=== PATIENT | female | born 1960 | race Caucasian/White ===

== ENCOUNTER → 2019-08-25 | Day surgery (SDC) | payer BC ==
[~2019-08-25] MED LIST: BIOTIN300 MCG PO; FENTANYL CITRATE/PF 100MCG/2 ML INJ ONE; GLUCAGON FOR INJ 1 MG VIAL ONE; HYOSCYAMINE 0.125 MG TAB ONE; MIDAZOLAM HCL 2 MG/2 ML VIAL ONE; MULTI-VITAMIN1 EACH PO; PROPOFOL IV EMULSION 10 MG/ML 50 ML VIAL ONE
--- NOTE | 2019-08-25 07:15 | NUR ---
SPIRITUAL CARE - Pre-Surgery Assessment: Pt in bed. Pt's friend at bedside. Pt reported supportive attention from family and friends. Intervention: I provided pastoral presence, hospitality, and sympathetic listening. I acquainted pt with availability of gauge and weigh machine adjuster while hospitalized. Outcome: Pt expressed appreciation for visit. No need for follow up indicated at this time. SEKOU Spearslain Spiritual Care Department O: [phone] Pager: [phone] ([phone] number calling from)
[2019-08-25 09:15] VITALS: BP 121/73
--- NOTE | 2019-08-25 13:56 | Operative Report ---
DATE OF PROCEDURE: 08/25/2019 SURGEON: Sg James MD PROCEDURE: Colonoscopy with polypectomy and hemoclipping of polypectomy site. INDICATIONS FOR COLONOSCOPY: Colorectal cancer screening, mother with colon cancer. MEDICATIONS: The patient was done under MAC, please see anesthesiologist's note. PROCEDURE IN DETAIL: With the patient in the left lateral decubitus position, a flexible fiberoptic Olympus colonoscope was inserted into the rectum with ease and advanced all the way to the cecum. An approximately 8 mm sessile polyp was noted in the cecum and that was removed per snare electrocautery and site was hemoclipped x1. An extrinsic compression was noted against the lateral wall of the cecum. The ascending, transverse, descending, and sigmoid grossly were unremarkable. Three minute polyps, hyperplastic-appearing, were hot biopsied from the rectum. The scope could not retroflex into the distal rectum, as her rectum was rather small. The scope was then straightened out and on the way out, whatever was visualized of the area around the dentate line grossly appeared to be within normal limits. The scope was subsequently withdrawn and the patient tolerated the procedure well. IMPRESSION: 1. Cecal polyp, approximately 8 mm sessile, removed per snare electrocautery and polypectomy site hemoclipped x1. 2. Extrinsic compression, cecum. 3. Rectal polyps x3, hot biopsied. Could not retroflex scope in distal rectum, as the patient's rectum was rather small, but whatever was visualized of the area around the dentate line appeared to be grossly within normal limits. PLAN: Follow up histology. Initiate high-fiber, low-fat diet. Initiate high-fiber supplement. The patient will need a CT scan of the abdomen to delineate the nature of the extrinsic compression against the cecum. The patient might benefit from a followup colonoscopy in 3 years. Sg James MD [facility] [place] /[id number] cc: Chela Collins MD
== END | disposition home or self-care (01) ==
LOC: OR 05:39
PROVIDERS: ATTEND Internal Medicine Gastroenterology
DX: Z12.11 Encounter for screening for malignant neoplasm of colon (principal); D12.0 Benign neoplasm of cecum; K62.1 Rectal polyp; K63.89 Other specified diseases of intestine; K44.9 Diaphragmatic hernia without obstruction or gangrene; R03.0 Elevated blood-pressure reading, without diagnosis of hypertension; Z01.810 Encounter for preprocedural cardiovascular examination; Z80.0 Family history of malignant neoplasm of digestive organs
CPT/HCPCS: 45384; 45385; 93005; J1610; J2250; J2704; J3010; 45378

== ENCOUNTER → 2019-09-01 | Outpatient (CLI) | payer BC ==
[~2019-09-01] MED LIST changes: +DIATRIZOATE MEGL/DIATRIZOA SOD 30 ML BTL PO ONE; -FENTANYL CITRATE/PF 100MCG/2 ML INJ ONE; -GLUCAGON FOR INJ 1 MG VIAL ONE; -HYOSCYAMINE 0.125 MG TAB ONE; +IOPAMIDOL 370 MG/ML 200 ML INFUS..BTL INJ ONE; -MIDAZOLAM HCL 2 MG/2 ML VIAL ONE; -PROPOFOL IV EMULSION 10 MG/ML 50 ML VIAL ONE; +SODIUM CHLORIDE 0.9% 500ML 500 ML ONE; +SODIUM CHLORIDE 0.9% 50ML 50 ML ONE
[2019-09-01 09:33] LABS: CREATININE, SERUM 1.04 mg/dL (0.57-1.11)
--- NOTE | 2019-09-01 13:20 | Diagnostic Imaging Report ---
EXAM: CT Abdomen and Pelvis WITH intravenous contrast INDICATION: Abnormal colonoscopy. Extrinsic compression. COMPARISON: None. TECHNIQUE: Abdomen and pelvis were scanned utilizing a multidetector helical scanner from the lung base to the pubic symphysis after administration of IV contrast. Coronal and sagittal reformations were obtained. Routine protocol was performed. Scan was performed during portal venous phase. IV CONTRAST: 100mL of Isovue 370 ORAL CONTRAST: Gastrografin RADIATION DOSE: Total DLP: 426.5 mGy*cm Dose modulation, iterative reconstruction, and/or weight based adjustment of the mA/kV was utilized to reduce the radiation dose to as low as reasonably achievable. FINDINGS: LOWER THORAX: Normal. HEPATOBILIARY: Mild diffuse hepatic steatosis. No focal liver lesion. No biliary ductal dilation. Cholelithiasis without CT evidence of cholecystitis. SPLEEN: No splenomegaly. PANCREAS: No focal masses or ductal dilatation. ADRENALS: No adrenal nodules. KIDNEYS/URETERS: No hydronephrosis, stones, or solid mass lesions. PELVIC ORGANS/BLADDER: Unremarkable. PERITONEUM / RETROPERITONEUM: No free air or fluid. LYMPH NODES: No lymphadenopathy. VESSELS: Mild scattered atherosclerotic calcifications of the nonaneurysmal abdominal aorta and major branches. GI TRACT: No abnormal bowel thickening. No bowel obstruction. No extraluminal cecal mass to explain endoscopic finding of extrinsic compression. BONES AND SOFT TISSUES: Unremarkable. IMPRESSION: No acute findings in the abdomen or pelvis. Specifically, no extraluminal mass associated with the cecum to explain the endoscopic finding of extrinsic compression. Signed by: Melvin White MD on 09/01/2019 1:18 PM
== END ==
LOC: CT 08:15
PROVIDERS: ATTEND Internal Medicine Gastroenterology
DX: K63.9 Disease of intestine, unspecified (principal)
CPT/HCPCS: 36415; 74177; 82565; 84520; J7040; Q9967